=== PATIENT | male | born 1990 | race Caucasian/White ===

== ENCOUNTER 2019-03-13 19:45 | Emergency (ER) | payer OTHER ==
[~2019-03-13] VITALS: Ht 182.9 cm; Wt 104.3 kg
[2019-03-13 20:18] LABS: URINE BILIRUBIN NEGATIVE (Negative); URINE BLOOD NEGATIVE (Negative); URINE CLARITY CLEAR; URINE COLOR YELLOW; URINE GLUCOSE-RANDOM NEGATIVE (Negative); URINE KETONES NEGATIVE (Negative); URINE LEUKOCYTES-REFLEX NEGATIVE (Negative); URINE NITRITE-REFLEX NEGATIVE (Negative); URINE PROTEIN NEGATIVE (Negative); URINE SPECIFIC GRAVITY 1.025 (1.005-1.030); URINE UROBILINOGEN 0.2 E.U./dl (0.2-1.0)
[2019-03-13 20:26] LABS: AMP/METHAMP POSITIVE (Negative); BARBITURATES Negative (Negative); BENZODIAZEPINES Negative (Negative); COCAINE Negative (Negative); METHADONE Negative (Negative); OPIATES Negative (Negative); PCP Negative (Negative); THC POSITIVE (Negative)
[2019-03-13 20:55] VITALS: BP 162/90
== END 2019-03-13 20:56 | disposition home or self-care (01) ==
LOC: M.ERS 19:45
PROVIDERS: Emergency Medicine
DX: F22 Delusional disorders (principal); F17.200 Nicotine dependence, unspecified, uncomplicated; Z88.1 Allergy status to other antibiotic agents

== ENCOUNTER 2019-03-15 01:51 | Emergency (ER) | payer OTHER ==
[~2019-03-15] VITALS: Ht 185.4 cm; Wt 104.3 kg
[2019-03-15] MEDS ORDERED: HALDOL 0.5 MG0.5 MG PO (04:02)
[2019-03-15 04:15] VITALS: BP 152/77
== END 2019-03-15 04:15 | disposition home or self-care (01) ==
LOC: M.ERS 01:51
DX: F41.9 Anxiety disorder, unspecified (principal); F17.200 Nicotine dependence, unspecified, uncomplicated; Z88.1 Allergy status to other antibiotic agents